=== PATIENT | male | born 1960 | race Caucasian/White ===

== ENCOUNTER → 2016-06-05 | Outpatient (CLI) | payer BC | LOC: RAD 11:14 | PROVIDERS: ATTEND Physician Assistant | DX: Z98.890 Other specified postprocedural states (principal); M47.892 Other spondylosis, cervical region | CPT/HCPCS: 72040 ==

== ENCOUNTER → 2017-03-31 | Outpatient (CLI) | payer BC ==
--- NOTE | 2017-03-31 16:12 | RADIOLOGY REPORT (SQ) ---
EXAM DESCRIPTION: CERV SP 3 VIEW OR LESS COMPLETED DATE/TIME: 03/31/2017 3:51 pm REASON FOR STUDY: Z98.1 ARTHRODESIS STATUS Z98.1 ARTHRODESIS STATUS COMPARISON: 06/05/2016 NUMBER OF VIEWS: Two views. TECHNIQUE: AP and lateral radiographic images acquired of the cervical spine. LIMITATIONS: None. FINDINGS: MINERALIZATION: Normal. ALIGNMENT: Anatomic. VERTEBRAE: Vertebral bodies of normal height. DISCS: Again there is decrease in the C5-C6 and C6-C7 disc space heights with associated osteophytic lipping. Disc spacers are again identified at the C3-C4 and C4-C5 levels. HARDWARE: Anterior orthopedic plate transfixed by orthopedic screws is edematous standing from the C3 to the C5 level. SOFT TISSUES: No masses or calcifications. Lung apices clear. OTHER: No other significant finding. IMPRESSION: No significant interval change. Degenerative and postsurgical changes as noted above. Other findings as noted above. TECHNICAL DOCUMENTATION: JOB ID: [id number] [employer]- All Rights Reserved
== END ==
LOC: RAD 15:35
PROVIDERS: ATTEND Nurse Practitioner Adult Health
DX: Z98.1 Arthrodesis status (principal)
CPT/HCPCS: 72040

== ENCOUNTER 2017-04-11 07:10 | Day surgery (SDC) | payer BC ==
--- NOTE | 2017-04-09 11:05 | HISTORY AND PHYSICAL E ---
History and Physical NAME: Tawny DIXON : 1960 AGE: 56Y ADMITTED: 04/11/2017 ROOM: CHIEF COMPLAINT: Colon screening. HISTORY OF PRESENT ILLNESS: Patient was seen in 2005, where he did have colonoscopy. Patient's parents are known to me. Patient has history of constipation and history of polyps. SOCIAL HISTORY: Patient does smoke 2 to 3 cigarettes. Does not drink. ALLERGIES: No known allergies. MEDICATIONS: 1. Vitamin D. 2. Calcium. 3. Vitamin E. 4. Potassium. 5. Magnesium. 6. Zinc. 7. Mucinex. REVIEW OF SYSTEMS: GASTROINTESTINAL: Constipation. CARDIAC: Negative. RESPIRATORY: Negative. FAMILY HISTORY: Father has polyps. PHYSICAL EXAMINATION: VITAL SIGNS: Blood pressure 120/80, pulse 80, respirations 20, temp is 98. HEAD, EYES, EARS, NOSE, THROAT: Normal. NECK: Supple. LUNGS: Clear. ABDOMEN: Soft. NEUROLOGIC: Negative. CONCLUSION: Colon screening. PLAN: Colonoscopy. Admit 04/11. DICTATING PHYSICIAN: CHACE NICOLAS M.D. [id number] PHY#: [id number] ID: [id number] JOB#: [id number] ACCT: [id number] cc:CHACE NICOLAS M.D. >
[2017-04-11] MEDS ORDERED: DIPHENHYDRAMINE HCL 50 MG/ML VIAL ONE (07:28)
[2017-04-11] MEDS ORDERED: FLUMAZENIL INJ 0.5 MG/5 ML VIAL ONE (07:29)
[2017-04-11] MEDS ORDERED: NALOXONE HCL INJ/PF 0.4 MG/1 ML SDV ONE (07:29)
[2017-04-11] MEDS ORDERED: FENTANYL CITRATE INJ/PF 100 MCG/2 ML AMPUL ONE (07:29)
[2017-04-11] MEDS ORDERED: ONDANSETRON HCL INJ/PF 4 MG/2 ML SDV ONE (07:29)
[2017-04-11] MEDS ORDERED: GLYCOPYRROLATE INJ 0.4 MG/2 ML VIAL ONE (07:30)
[2017-04-11] MEDS ORDERED: GLUCAGON,HUMAN RECOMB 1 MG INJ ONE (07:30)
[2017-04-11] MEDS ORDERED: EPINEPHRINE INJ 1 MG/10 ML DISP.SYRIN ONE (07:30)
[2017-04-11] MEDS: MIDAZOLAM 2 MG/2 ML INJ ONE ×2 (07:59→08:03)
[2017-04-11 10:11] VITALS: BP 112/73
--- NOTE | 2017-04-11 13:49 | OPERATIVE REPORT E ---
Operative Report NAME: Terell DIXON : 1960 AGE: 56Y DATE OF SURGERY: 04/11/2017 ROOM: PREOPERATIVE DIAGNOSIS: Colon screening. POSTOPERATIVE DIAGNOSIS: Diverticulosis, mild, occasional diverticula in the sigmoid colon with question benign-looking 2-3 mm polyp. I tried to biopsy it, but with peristalsis completely disappeared. It looks very benign polyp. It looks like jellyfish benign looking, 2-3 mm. When I was ready to biopsy it, I just could not see it very clear and I tried again and again. I just could not see the polyp any more. SURGEON: CHACE NICOLAS M.D. DESCRIPTION OF PROCEDURE: Rectal exam: Prostate exam is normal. Rectum: Sigmoid normal except the 2-3 question polyp in the sigmoid, which was seen on 1 occasion when I was ready to biopsy, it disappeared, which goes with benign-looking polyp, mucus polyp, benign looking. Descending colon normal. Transverse colon normal. Ascending colon normal. Cecum normal. Patient has prep adequate, but moderate amount of stool that is colon redundant and difficult to reach the cecum, but with manipulation, we were able to see the cecum, the ileocecal valve, which was normal. Scope withdrawn from cecum, ascending, transverse, descending, sigmoid all the way to the rectum. CONCLUSION: Questionable polyp 2 mm mucus polyp in the sigmoid benign, unable to visualize it clearly at the time of biopsy, so biopsy was abandoned. Mild diverticulosis. PLAN: Soft diet. Consider followup colonoscopy after 2 years. DICTATING PHYSICIAN: CHACE NICOLAS M.D. [id number] Y#: [id number] ID: [id number] JOB#: [id number] ACCT: [id number] cc:CHACE NICOLAS M.D. >
--- NOTE | 2017-04-11 13:51 | DISCHARGE SUMMARY E ---
Discharge Summary NAME: Terell DIXON : 1960 AGE: 56Y ADMITTED: 04/11/2017 DISCHARGED: 04/11/2017 FINAL DIAGNOSIS: Mild diverticulosis, question mucus polyp sigmoid small to biopsy. HISTORY: Patient is 56, well known to me, underwent colonoscopy more than 10 years ago. The patient does have strong family history of polyps. He smokes a few cigarettes. The patient's colonoscopy today was complete to the cecum, mild diverticulosis. Patient does have surgery on his back and he does cervical spine on his back. He has screws in his neck and his back, sleep apnea, CPAP. PLAN: Soft diet. Consider followup colon exam 2 years. DICTATING PHYSICIAN: CHACE NICOLAS M.D. [id number] PHY#: [id number] ID: [id number] JOB#: [id number] ACCT: [id number] cc:CHACE NICOLAS M.D. >
== END 2017-04-11 09:35 | disposition home or self-care (01) ==
LOC: END 07:10
PROVIDERS: ATTEND Specialist
PROC: 0DJD8ZZ Inspection of Lower Intestinal Tract, Via Natural or Artificial Opening Endoscopic (ICD-10-PCS; principal; 2017-04-11 08:00)
DX: Z12.11 Encounter for screening for malignant neoplasm of colon (principal); K57.30 Diverticulosis of large intestine without perforation or abscess without bleeding; D12.5 Benign neoplasm of sigmoid colon; Z86.010 Personal history of colon polyps; F17.210 Nicotine dependence, cigarettes, uncomplicated; G47.30 Sleep apnea, unspecified
CPT/HCPCS: 45378; J2250; J3010; J1610; J2405; J0171; J1200; J2310; J3490

== ENCOUNTER → 2020-05-18 | Outpatient (CLI) | payer BC ==
[2020-05-18 10:55] LABS: ABSOLUTE BASOPHILS # (AUTO) 0.1 10^3/uL (0.0-0.2); ABSOLUTE EOSINOPHILS # (AUTO) 0.3 10^3/uL (0.0-0.6); ABSOLUTE LYMPHOCYTES (AUTO) 1.9 10^3/uL (0.5-4.7); ABSOLUTE NEUT (AUTO) 4.7 10^3/uL (1.7-8.2); BASOPHILS % (AUTO) 0.8 % (0-2); EOSINOPHILS % (AUTO) 4.1 % (0-6); HEMOGLOBIN 19.9 g/dL (13.5-17.0); LYMPHOCYTES % (AUTO) 23.8 % (13-45); MEAN CORPUSCULAR HEMOGLOBIN 30.8 pg (27.0-33.4); MEAN CORPUSCULAR HGB CONC 35.3 g/dL (32.0-36.0); MEAN CORPUSCULAR VOLUME 87 fl (80-97); MONOCYTES % (AUTO) 12.6 % (3-13); PLATELET COUNT 192 10^3/uL (150-450); RED BLOOD COUNT 6.47 10^6/uL (4.35-5.55); RED CELL DISTRIBUTION WIDTH 16.4 % (11.5-14.0); SEGMENTED NEUTROPHILS % (AUTO) 58.7 % (42-78); TOTAL CELLS COUNTED % (AUTO) 100 %; WHITE BLOOD COUNT 7.9 10^3/uL (4.0-10.5)
[2020-05-18 11:00] LABS: APPEARANCE,URINE CLEAR; BILIRUBIN,URINE NEGATIVE (NEGATIVE); COLOR,URINE YELLOW; GLUCOSE, URINE NEGATIVE (NEGATIVE); KETONES,URINE NEGATIVE (NEGATIVE); LEUKOCYTE ESTERASE,URINE NEGATIVE (NEGATIVE); NITRITE,URINE NEGATIVE (NEGATIVE); PROTEIN,URINE NEGATIVE (NEGATIVE); URINE SPECIFIC GRAVITY 1.017; UROBILINOGEN,URINE NEGATIVE mg/dL (<2.0)
[2020-05-18 11:07] LABS: HEMATOCRIT 56.5 % (37.9-51.0)
[2020-05-18 11:19] LABS: ALBUMIN 4.2 g/dL (3.5-5.0); ANION GAP 8 (5-19); BLOOD UREA NITROGEN 20 mg/dL (7-20); C-REACTIVE PROTEIN 5.4 mg/L (<10.0); CALCIUM 9.3 mg/dL (8.4-10.2); CARBON DIOXIDE 27 mmol/L (22-30); CHLORIDE 103 mmol/L (98-107); GLUCOSE 107 mg/dL (75-110); POTASSIUM 4.5 mmol/L (3.6-5.0)
[2020-05-18 11:47] LABS: ERYTHROCYTE SEDIMENTATION RATE 3 mm/hr (0-20)
--- NOTE | 2020-05-18 23:52 | EKG REPORT ---
SEVERITY:- OTHERWISE NORMAL ECG - SINUS RHYTHM RIGHT AXIS DEVIATION : Confirmed by: Izabela Cool 18-May-2020 23:52:29
== END ==
LOC: OD 09:32
PROVIDERS: ATTEND Orthopaedic Surgery
DX: Z01.810 Encounter for preprocedural cardiovascular examination (principal); Z01.811 Encounter for preprocedural respiratory examination; Z01.812 Encounter for preprocedural laboratory examination
CPT/HCPCS: 36415; 80048; 81001; 82040; 82306; 83036; 85025; 85652; 86140; 87070; 93005; 93010

== ENCOUNTER 2020-06-08 05:36 | Day surgery (SDC) | payer BC ==
--- NOTE | 2020-05-18 11:24 | RADIOLOGY REPORT (SQ) ---
EXAM DESCRIPTION: CHEST 2 VIEWS IMAGES COMPLETED DATE/TIME: 05/18/2020 10:47 am REASON FOR STUDY: PRE OP M17.11 UNILATERAL PRIMARY OSTEOARTHRITIS, RIGHT KNEE COMPARISON: None. NUMBER OF VIEWS: Two view. TECHNIQUE: Frontal and lateral radiographic views of the chest acquired. LIMITATIONS: None. FINDINGS: LUNGS AND PLEURA: No opacities, masses or pneumothorax. No pleural effusion. Attenuated bl ood vessels and flattened carmelo-diaphragms. MEDIASTINUM AND HILAR STRUCTURES: No masses. No contour abnormalities. HEART AND VASCULAR STRUCTURES: Heart normal in size and contour. No evidence for failure. BONES: No acute findings. Degenerative changes in the spine. HARDWARE: None in the chest. OTHER: No other significant finding. IMPRESSION: COPD. NO ACUTE RADIOGRAPHIC FINDING IN THE CHEST. TECHNICAL DOCUMENTATION: JOB ID: [id number] 2010 [employer]- All Rights Reserved Reading location - IP/workstation name: [email or web address]
[2020-06-05 09:17] LABS: HEMOGLOBIN 19.5 g/dL (13.5-17.0); MEAN CORPUSCULAR HEMOGLOBIN 30.8 pg (27.0-33.4); MEAN CORPUSCULAR HGB CONC 34.5 g/dL (32.0-36.0); MEAN CORPUSCULAR VOLUME 89 fl (80-97); PLATELET COUNT 226 10^3/uL (150-450); RED BLOOD COUNT 6.34 10^6/uL (4.35-5.55); RED CELL DISTRIBUTION WIDTH 15.4 % (11.5-14.0); WHITE BLOOD COUNT 7.8 10^3/uL (4.0-10.5)
[2020-06-05 09:24] LABS: HEMATOCRIT 56.6 % (37.9-51.0)
[2020-06-05 09:35] LABS: APPEARANCE,URINE CLEAR; BILIRUBIN,URINE NEGATIVE (NEGATIVE); COLOR,URINE YELLOW; GLUCOSE, URINE 50 mg/dL (NEGATIVE); KETONES,URINE NEGATIVE (NEGATIVE); PROTEIN,URINE NEGATIVE (NEGATIVE)
[2020-06-05 09:53] LABS: ALBUMIN 4.1 g/dL (3.5-5.0); ANION GAP 12 (5-19); BLOOD UREA NITROGEN 18 mg/dL (7-20); CALCIUM 9.1 mg/dL (8.4-10.2); CARBON DIOXIDE 24 mmol/L (22-30); CHLORIDE 103 mmol/L (98-107); GLUCOSE 146 mg/dL (75-110); POTASSIUM 3.8 mmol/L (3.6-5.0)
[2020-06-05 09:58] LABS: C-REACTIVE PROTEIN < 5.0 mg/L (<10.0)
--- NOTE | 2020-06-05 10:00 | EKG REPORT ---
SEVERITY:- OTHERWISE NORMAL ECG - SINUS RHYTHM RIGHT AXIS DEVIATION : Confirmed by: Trever Stevens MD 05-Jun-2020 09:59:01
[~2020-06-08 05:36] MED LIST: CEFAZOLIN 2 GM/D5W RTU 0 GM/0 ML RTUPB IV ONE
[2020-06-08] MEDS ORDERED: ACETAMINOPHEN 325 MG TABLET ONE (05:57)
[2020-06-08] MEDS ORDERED: CELECOXIB 200 MG CAPSULE ONE (05:57)
[2020-06-08] MEDS ORDERED: GABAPENTIN 100 MG CAPSULE ONE (05:58)
[2020-06-08] MEDS ORDERED: PANTOPRAZOLE SODIUM 20 MG TABLET.DR PO ONE ×3 (05:58→10:00)
[2020-06-08] MEDS ORDERED: SCOPOLAMINE HYDROBROMIDE 1.5 MG PATCH.TD72 ONE (05:58)
[2020-06-08] MEDS ORDERED: OXYCODONE HCL SR 10 MG TABLET PO ONE (05:58)
[2020-06-08] MEDS ORDERED: FENTANYL CITRATE INJ/PF 100 MCG/2 ML AMPUL ONE (06:41)
[2020-06-08] MEDS ORDERED: MIDAZOLAM 2 MG/2 ML INJ ONE (06:41)
[2020-06-08] MEDS ORDERED: PROPOFOL INJ 200 MG/20 ML VIAL IV ONE (06:42)
[2020-06-08] MEDS ORDERED: BUPIVACAINE HCL 0.25 % INJ/PF (2.5 MG/1 ML) 30 ML VIAL ONE (06:49)
[2020-06-08] MEDS ORDERED: LIDOCAINE 1% INJ-PF (10 MG/ML) 30 ML SDV ONE (06:49)
[2020-06-08] MEDS ORDERED: KETOROLAC TROMETHAMINE INJ/PF 30 MG/1 ML SDV ONE (06:49)
[2020-06-08] MEDS ORDERED: VANCOMYCIN HCL INJ 1000 MG VIAL ONE (06:49)
[2020-06-08] MEDS ORDERED: VANCOMYCIN HCL 1,000 MG in DEXTROSE 5%-WATER 250 ML IV ONE (07:15)
[2020-06-08] MEDS ORDERED: DIPHENHYDRAMINE HCL 25 MG CAPSULE PO PRN (07:44)
[2020-06-08] MEDS ORDERED: TRAMADOL HCL 50 MG TABLET PO PRN (07:44)
[2020-06-08] MEDS ORDERED: DOCUSATE SODIUM 100 MG CAPSULE PO PRN (07:44)
[2020-06-08] MEDS ORDERED: NORMAL SALINE 1000 ML 1,000 ML IV ONE (07:44)
[2020-06-08] MEDS ORDERED: MORPHINE SULFATE 10 MG/ML INJ IV PRN ×3 (07:44→08:39)
[2020-06-08] MEDS ORDERED: OXYCODONE HCL IR 5 MG TABLET PO PRN ×4 (07:44)
[2020-06-08] MEDS ORDERED: ZOLPIDEM TARTRATE 5 MG TABLET PO PRN (07:44)
[2020-06-08] MEDS ORDERED: ONDANSETRON 4 MG TAB.RAPDIS PO PRN (07:44)
--- NOTE | 2020-06-08 07:50 | Discharge Summary ---
Discharge Summary (SDC) - Discharge Final Diagnosis: Right total knee arthroplasty Date of Surgery: 06/08/20 Discharge Date: 06/08/20 Condition: Stable Treatment or Instructions: Full details of postoperative instructions have been provided to the patient in the clinic. Additionally they should maintain their bandage in place for 10 days, and then changed to a dry dressing. They can take showers with this occlusive dressing but any further dressing should also be occlusive. No showers with the wound unprotected until cleared by me in the clinic. If the bandage falls off early or become saturated they can change as needed to another occlusive dressing. Follow-up with Dr. Jabari Loving, orthopedic surgeon at [facility] for surgery, in 10 days. Call for an appointment. . [address], [place] [address] Prescriptions: Aspirin 81 mg PO BID 42 Days tab.chew Referrals: MARIAH JOHNSON MD [Primary Care Provider] - Discharge Diet: As Tolerated Respiratory Treatments at Home: Deep Breathing/Coughing Discharge Activity: Activity As Tolerated, No Driving, Keep Legs Elevated, No tub bath, Walk Frequently Adaptive Devices on Discharge: Rolling Walker, Bedside Commode Report the Following to Your Physician Immediately: Shortness of Breath, Fever over 101 Degrees, Unusual Bleeding, Drainage-Yellow
[2020-06-08] MEDS ORDERED: DEXAMETHASONE SOD PHOS INJ 10 MG/1 ML VIAL IV ONE (08:00)
[2020-06-08] MEDS ORDERED: TRANEXAMIC ACID INJ/PF 1,000 MG/10 ML SDV ONE (08:06)
[2020-06-08] MEDS ORDERED: TRANEXAMIC ACID INJ/PF 1,000 MG/10 ML SDV IV ONE (08:15)
[2020-06-08] MEDS ORDERED: FENTANYL CITRATE INJ/PF 100 MCG/2 ML AMPUL IV PRN ×3 (08:39)
[2020-06-08] MEDS ORDERED: DIPHENHYDRAMINE HCL 50 MG/ML VIAL IV PRN (08:39)
[2020-06-08] MEDS ORDERED: PROMETHAZINE HCL INJ 25 MG/1 ML VIAL IV PRN ×2 (08:39)
[2020-06-08] MEDS ORDERED: MEPERIDINE HCL/PF INJ 25 MG/1 ML DISP.SYRIN IV PRN (08:39)
--- NOTE | 2020-06-08 09:43 | Operative Report ---
Operative Report DATE OF SURGERY: 06/08/20 PREOPERATIVE DIAGNOSIS: Right knee primary osteoarthritis, severe POSTOPERATIVE DIAGNOSIS: Severe right knee primary osteoarthritis OPERATION: Right total knee arthroplasty SURGEON: JABARI ALANIZ JR ANESTHESIA: Spinal COMPLICATIONS: None ESTIMATED BLOOD LOSS: 50 cc PROCEDURE: Components: [employer] 2 cobalt chrome total knee: Size 6 PS femur, 6 x 11 tibia, and a 35 patella OPERATIVE PROCEDURE: Patient was brought to the operating room and spinal anesthesia was administered. After proper anesthesia was obtained, patient was positioned, padded, prepped, and draped in the usual sterile fashion on the operating room table. 2 grams of Ancef and 1 g of vancomycin were given. A ppropriate time out was performed. Anterior incision and medial-parapatella approach was performed. Severe degenerative arthritis was noted. Osteophytes were removed from the femur and tibia, and the remainder of the ACL and PCL were removed. The proximal tibia was then prepared and cut perpendicular to the tibial shaft axis and measured to a 6 tibia. The distal femur was drilled, the canal was irrigated and the distal femoral guide was placed. The distal femur was cut 13 mm to 5 degrees of varus. An extension 10 block was placed in the gap was found to be appropriate. The tensor was placed in extension and the extension gap was balanced with releases until the goniometer on the tensor measured to 0. The tensor was placed in flexion and the femur was sized to 6. Drill holes were placed to the appropriate femoral rotation. The 4 and 1 block was placed and the flexion gap was then re-checked with the tensor adapter and found to be appropriate. Anterior-posterior and chamfer cuts were made. Posterior osteophytes were removed. The femoral trial was then placed, and the notch was cut. The combination of the tibial baseplate and the 9 mm polyethylene liner were then placed and the knee was taken through a range of motion with the trials in. There was slight laxity in mid flexion. We then trialed again with an 11 which had ideal flexion and extension ease, full extension, appropriate tension throughout range of motion. This had excellent balance in extension and flexion as well as patellar tracking. The patella AP aspect was measured to 26 mm and the patella was cut parallel to the anterior patella surface. A 35 mm button was placed medially and superiorly as possible and the patella-button construct again measured 26 mm. This was again taken through a range of motion and found to have excellent balance, stability and ease of full motion. The rotation of the tibial baseplate was marked, the tibial was anteriorly subluxed and the tibial component was pinned and drilled and punched. All the trials were then removed and the wound was copiously irrigated with sterile saline followed by a Betadine soak. The bony surface was then burred in order to increase cement interdigitation. After pulsatile irrigation of the geri and soft tissue surfaces, the geri surfaces were cleaned and dried, and cementation of the femur, tibia, and patella was performed. All excess cement was thoroughly removed. The knee was placed in slight flexion until cement was hard. Periarticular injection with Lidocaine, Marcaine and Toradol was performed. The knee was irrigated copiously. A gram of Vancomycin was placed intra-articularly. The extensor mechanism was closed with 0 vicryl tacking sutures and number 2 Quill. The subcutaneous tissue was closed with 2-0 monocryl and the skin closed with 3-0 running monocryl. A silver dressing was applied. All needle sponge and instrument counts were correct. Patient was awakened from sedation anesthesia and taken to recovery room in good condition. Jabari Alaniz DO
[2020-06-08] MEDS ORDERED: ROPIVACAINE HCL 0.5% INJ/PF (5 MG/1 ML) 30 ML SDV ONE (09:55)
[2020-06-08] MEDS ORDERED: POLYETHYLENE GLYCOL 3350 POWDER 17 GM/1 PACKET PO SCH (10:00)
[2020-06-08] MEDS ORDERED: (PENDING PHARMACY ID) (Multivit-Min/Iron Fum/Folic Ac [Multi-Vitamin-Minerals Tablet] 1 EA PO SCH (10:00)
[2020-06-08] MEDS ORDERED: MULTIVITAMIN TABLET PO SCH (10:00)
[2020-06-08] MEDS ORDERED: ASPIRIN 325 MG TABLET PO SCH (10:00)
--- NOTE | 2020-06-08 10:27 | RADIOLOGY REPORT (SQ) ---
EXAM DESCRIPTION: KNEE RIGHT 2 VIEWS IMAGES COMPLETED DATE/TIME: 06/08/2020 10:03 am REASON FOR STUDY: post op M17.11 UNILATERAL PRIMARY OSTEOARTHRITIS, RIGHT KNEE COMPARISON: Knee films 03/07/2020 NUMBER OF VIEWS: Portable AP and lateral views right knee TECHNIQUE: Digital radiographic images of the right knee post-procedure. LIMITATIONS: None. FINDINGS: BONES: No worrisome or unexpected findings post-procedure. DEVICE: Right total knee replacement with patellar resurfacing. SOFT TISSUES: No worrisome findings. Expected postoperative soft tissue changes. Suprapatellar kne e joint effusion and intra-articular air IMPRESSION: SATISFACTORY POSTOPERATIVE RIGHT KNEE. TECHNICAL DOCUMENTATION: JOB ID: [id number] 2010 [employer]- All Rights Reserved Reading location - IP/workstation name: [email or web address]
[2020-06-08] MEDS ORDERED: ACETAMINOPHEN 325 MG TABLET PO SCH (12:00)
[2020-06-08] MEDS ORDERED: KETOROLAC TROMETHAMINE INJ/PF 30 MG/1 ML SDV IV SCH (14:00)
[2020-06-08] MEDS ORDERED: CEFAZOLIN 2 GM/D5W RTU 2 GM/50 ML RTUPB IV SCH (14:00)
[2020-06-08] MEDS ORDERED: CEFAZOLIN SODIUM 2 GM in DEXTROSE 5%-WATER 100 ML IV SCH (14:00)
[2020-06-08] MEDS ORDERED: CEFAZOLIN 2 GM/D5W RTU 2 GM/50 ML RTUPB IV ONE (14:43)
[2020-06-08] MEDS ORDERED: ONDANSETRON HCL INJ/PF 4 MG/2 ML SDV ONE (15:44)
[2020-06-08 16:30] VITALS: BP 123/82
[2020-06-08] MEDS ORDERED: GABAPENTIN 100 MG CAPSULE PO SCH (22:00)
[2020-06-10] MEDS ORDERED: CELECOXIB 200 MG CAPSULE PO SCH (10:00)
== END 2020-06-08 16:45 | disposition home or self-care (01) ==
LOC: OROUT 05:36 → EDSTATUS 07:30 → OROUT 16:45
PROVIDERS: ATTEND Orthopaedic Surgery
DX: M17.0 Bilateral primary osteoarthritis of knee (principal); M65.861 Other synovitis and tenosynovitis, right lower leg; Z01.812 Encounter for preprocedural laboratory examination; Z20.822 Contact with and (suspected) exposure to COVID-19; Z79.1 Long term (current) use of non-steroidal anti-inflammatories (NSAID); Z79.899 Other long term (current) drug therapy; Z87.891 Personal history of nicotine dependence
CPT/HCPCS: 93005; 86900; 86901; 36415 ×2; 86850; 82040; 85027; 85652; 86140; 80048; 81001; 87070; 83036; 82306; 71046; 73560; 93010; 97530 ×2; 97110; 97116; 97162; 97535; 97165; 27447; U0003; J2795; J2250; J0690 ×2; J3010; J3490 ×3; J1885; J2405; J7060 ×2; J2704; J3370; C9803; 87635; C1713; C1776